=== PATIENT | female | born 1985 | race African-American/Black ===

== ENCOUNTER 2017-11-05 14:57 | Emergency (ER) | payer OTHER ==
[2017-11-05] MEDS: HYDROcodone/APAP 5/325MG 1 TAB TABLET PO (16:16)
[2017-11-05] MEDS: IBUPROFEN 800 MG TABLET. PO (16:17)
== END 2017-11-05 16:22 | disposition home or self-care (01) ==
LOC: ER 16:22
DX: S62.101A Fracture of unspecified carpal bone, right wrist, initial encounter for closed fracture (principal); W18.39XA Other fall on same level, initial encounter; Y93.I9 Activity, other involving external motion; Y99.8 Other external cause status; Y92.89 Other specified places as the place of occurrence of the external cause
CPT/HCPCS: 29125; 73110; 99284-25